=== PATIENT | female | born 1965 | race Asian ===

== ENCOUNTER 2023-06-08 14:21 | Outpatient (CLI) | payer BC ==
[2023-06-08 15:23] LABS: PTT 26.2 sec (22.0-33.0)
== END 2023-06-08 14:22 | disposition home or self-care (01) ==
LOC: LABBT 14:21
PROVIDERS: ATTEND Urology
DX: Z01.818 Encounter for other preprocedural examination (principal); N20.1 Calculus of ureter
CPT/HCPCS: 85610; 85730; 93005; 93010